=== PATIENT | male | born 1990 | race African-American/Black ===

== ENCOUNTER 2017-06-15 21:53 | Emergency (ER) | payer SELFPAY | END 2017-06-15 22:45 | disposition left against medical advice (07) | LOC: ER 21:53 | DX: Z53.21 Procedure and treatment not carried out due to patient leaving prior to being seen by health care provider (principal) ==

== ENCOUNTER 2017-07-21 18:36 | Emergency (ER) | payer MEDICAID ==
[~2017-07-21] VITALS: Ht 182.9 cm; Wt 86.0 kg
[2017-07-21 19:06] VITALS: BP 143/85
== END 2017-07-21 23:15 | disposition left against medical advice (07) ==
LOC: ER 18:36
DX: Z53.21 Procedure and treatment not carried out due to patient leaving prior to being seen by health care provider (principal)

== ENCOUNTER 2017-07-23 20:30 | Emergency (ER) | payer MEDICAID | END 2017-07-24 00:43 | disposition left against medical advice (07) | LOC: ER 22:38 | DX: F19.10 Other psychoactive substance abuse, uncomplicated (principal); Z53.21 Procedure and treatment not carried out due to patient leaving prior to being seen by health care provider ==